=== PATIENT | female | born 1980 | race Caucasian/White ===

== ENCOUNTER 2016-12-08 15:47 | Outpatient (CLI) | payer OTHER ==
--- NOTE | 2016-12-08 17:06 | DIAGNOSTIC IMAGING REPORT ---
PROCEDURE: US 1ST TRIMESTER INDICATION: SIZE AND DATES TECHNIQUE: Umana scale, color, and spectral Doppler images of the second trimester gravid uterus were obtained. COMPARISON: None. FINDINGS: A single living intrauterine is in vertex presentation. There is regular cardiac activity at a rate of 167 beats per minute. The placenta is anterior. The cervix is closed measuring approximately 3.7 cm in length. The amniotic fluid volume is subjectively normal. Biparietal diameter 22.2 mm at 13 weeks and 5 days Head circumference 84.2 mm at 13 weeks and 5-day Abdominal circumference 67.6 mm at 13 weeks and 3 days Head to abdominal circumference ratio is normal. [place]-rump length 76.2 mm at 13 weeks and 5 days Composite gestational age 13 weeks and 5 days, ALFONZO 06/10/2017 Right ovary contained a 15 mm follicle. Left ovary not visualized. IMPRESSION: 1. Single living intrauterine with a composite gestational age of 13 weeks and 5 days, ALFONZO 06/10/2017
== END 2016-12-08 23:00 ==
LOC: US SRH 15:47
DX: Z34.91 Encounter for supervision of normal pregnancy, unspecified, first trimester (principal); Z3A.13 13 weeks gestation of pregnancy

== ENCOUNTER 2017-01-12 10:53 | Outpatient (CLI) | payer OTHER ==
--- NOTE | 2017-01-12 12:03 | DIAGNOSTIC IMAGING REPORT ---
PROCEDURE: US OB DETAILED ANATOMIC INDICATION: ANATOMY TECHNIQUE: Umana scale, color, and spectral Doppler images of the second trimester gravid uterus were obtained. COMPARISON: OB ultrasound dated 12/08/2016 FINDINGS: A single living intrauterine is in vertex presentation. There is regular cardiac activity at a rate of 164 beats per minute. The placenta is anterior and away from the internal cervical os. The cervix is closed measuring approximately 5.3 cm in length. The amniotic fluid volume is subjectively normal. Biparietal diameter 4.2 cm at 18 weeks and 5-day Head circumference 15.5 cm of 18 weeks and 3 days Abdominal circumference 12.9 cm of 18 weeks and 3-day Femur length 2.7 cm of 18 weeks and 1 day Head to abdominal circumference ratio and femur length to abdominal circumference ratios are normal. Estimated weight 236 g Composite gestational age 18 weeks and 3 days, ALFONZO 06/12/2017 There was visualization of a number of normal structures including the intracranial contents, facial features, nuchal region, spine, four-chamber heart and outflow tracts to the extent that could be visualized, diaphragm, fluid-filled stomach, kidneys, abdomen, urinary bladder, upper and lower extremities, and genitals. A three-vessel umbilical cord, normal and placental cord insertion sites were seen. There is a 1.8 cm follicle on the right ovary. IMPRESSION: 1. Single living intrauterine with a composite gestational age of 18 weeks and 3 days, ALFONZO 06/12/2017 2. Symmetric and normal anatomy.
== END 2017-01-12 23:00 ==
LOC: US SRH 10:53
DX: Z34.92 Encounter for supervision of normal pregnancy, unspecified, second trimester (principal); Z3A.18 18 weeks gestation of pregnancy